=== PATIENT | female | born 1950 | race Caucasian/White ===

== ENCOUNTER 2016-12-01 07:00 | Inpatient (IN) | payer OTHER, BC ==
[2017-02-09] MEDS ORDERED: morphINE PF 5 MG/10 ML INJ IT ONE (06:00)
[2017-02-09] MEDS ORDERED: fentaNYL 100 MCG/2 ML INJ IT ONE (06:00)
[2017-02-09] MEDS ORDERED: VANCOMYCIN HCL/NORMAL SALINE 250 ML IV ONE (06:00)
[2017-02-09] MEDS ORDERED: LR 1,000 ML IV ONE (06:37)
[2017-02-09] MEDS ORDERED: CITRATE DEXTROSE SOLN 500 ML BAG ONE ×2 (06:38→06:58)
[2017-02-09] MEDS ORDERED: THROMBIN (RECOMBINANT) 20,000 UNIT VIAL TP ONE ×2 (06:41→12:20)
[2017-02-09] MEDS ORDERED: BUPIVACAINE 0.25% 30 ML SDV ONE (06:42)
[2017-02-09] MEDS ORDERED: BUPIVACAINE/EPI 0.25% 30 ML SDV ONE ×2 (06:42→08:39)
[2017-02-09] MEDS ORDERED: BACITRACIN 50,000 UNITS/10 ML SYR IRR ONE ×4 (06:42→13:27)
[2017-02-09] MEDS ORDERED: fentaNYL 100 MCG/2 ML INJ ONE ×2 (06:54→09:39)
[2017-02-09] MEDS ORDERED: REMIFENTANIL HCL 1 MG VIAL ONE ×3 (06:54)
[2017-02-09] MEDS ORDERED: PROPOFOL/EMULSION 500 MG/50 ML BOTTLE IV ONE ×3 (06:55→13:05)
[2017-02-09] MEDS ORDERED: PROPOFOL 200 MG/20 ML VIAL ONE (06:58)
[2017-02-09] MEDS ORDERED: AMINOCAPROIC ACID 5 GM/20 ML VIAL ONE ×2 (07:02→14:12)
[2017-02-09] MEDS ORDERED: MIDAZOLAM 2 MG/2 ML VIAL ONE (07:15)
[2017-02-09] MEDS ORDERED: PHENYLEPHRINE HCL 100 MCG/ML SYR ONE (08:25)
[2017-02-09] MEDS ORDERED: ROCURONIUM 50 MG/5 ML VIAL ONE (08:41)
[2017-02-09] MEDS ORDERED: PHENYLEPHRINE 10 MG/ML SDV ONE (08:41)
[2017-02-09] MEDS ORDERED: DEXAMETHASONE 4 MG/ML VIAL ONE (09:11)
[2017-02-09] MEDS ORDERED: HYDROmorphONE/DILAUDID 2 MG/ML INJ ONE (09:22)
[2017-02-09] MEDS ORDERED: morphINE PF 5 MG/10 ML INJ ONE (09:39)
[2017-02-09 10:33] LABS: % IMMATURE GRANULYOCYTES 0.8 % (0.0-1.1); ABSOLUTE IMMATURE GRANULOCYTES 0.05 10^3/uL (0.00-0.10); ADD DIFF? NO; ADD MORPH? NO; ADD SCAN? NO; ATYPICAL LYMPHOCYTE FLAG 10 (0-99); FRAGMENT RBC FLAG 0 (0-99); HEMATOCRIT 31.7 % (38.0-47.0); HEMOGLOBIN 10.7 g/dL (12.6-16.3); LEFT SHIFT FLG 0 (0-99); LIPEMIA HEMOLYSIS FLAG 90 (0-99); MEAN CELL HEMOGLOBIN 29.7 pg (27.9-34.1); MEAN CELL HEMOGLOBIN CONCENTR. 33.8 g/dL (32.4-36.7); MEAN CELL VOLUME 88.1 fL (81.5-99.8); MEAN PLATELET VOLUME 9.8 fL (8.7-11.7); PLATELET CLUMPS FLAG 0 (0-99); PLATELET COUNT 158 10^3/uL (150-400); RED CELL DISTRIBUTION WIDTH 12.5 % (11.5-15.2)
[2017-02-09 10:52] LABS: INR 1.14 (0.83-1.16); PROTIME(PATIENT) 14.5 SEC (12.0-15.0)
[2017-02-09] MEDS ORDERED: CALCIUM CHLORIDE 1 GM/10 ML INJ ONE (10:52)
[2017-02-09 10:53] LABS: APTT 29.9 SEC (23.0-38.0)
[2017-02-09] MEDS ORDERED: POTASSIUM Cl (KCl) 100 ML IV ONE (11:00)
[2017-02-09 13:25] LABS: % IMMATURE GRANULYOCYTES 0.8 % (0.0-1.1); ABSOLUTE IMMATURE GRANULOCYTES 0.11 10^3/uL (0.00-0.10); ADD DIFF? NO; ADD MORPH? NO; ADD SCAN? NO; ATYPICAL LYMPHOCYTE FLAG 0 (0-99); FRAGMENT RBC FLAG 0 (0-99); HEMATOCRIT 29.7 % (38.0-47.0); HEMOGLOBIN 10.2 g/dL (12.6-16.3); LEFT SHIFT FLG 0 (0-99); LIPEMIA HEMOLYSIS FLAG 90 (0-99); MEAN CELL HEMOGLOBIN 30.5 pg (27.9-34.1); MEAN CELL HEMOGLOBIN CONCENTR. 34.3 g/dL (32.4-36.7); MEAN CELL VOLUME 88.9 fL (81.5-99.8); MEAN PLATELET VOLUME 9.9 fL (8.7-11.7); PLATELET CLUMPS FLAG 0 (0-99); PLATELET COUNT 131 10^3/uL (150-400); RED BLOOD CELL COUNT 3.34 10^6/uL (4.18-5.33)
[2017-02-09] MEDS ORDERED: ALBUMIN 5% 250 ML BOTTLE IV ONE ×2 (13:32→13:34)
[2017-02-09 13:34] LABS: APTT 24.9 SEC (23.0-38.0); INR 1.1 (0.83-1.16); PROTIME(PATIENT) 14.1 SEC (12.0-15.0)
[2017-02-09] MEDS ORDERED: SUGAMMADEX SODIUM 200 MG/2 ML VIAL IVP ONE (15:08)
[2017-02-09] MEDS ORDERED: ONDANSETRON 4 MG/2 ML VIAL ONE (15:12)
[2017-02-09] MEDS ORDERED: TEMAZEPAM 15 MG CAP PO PRN (15:33)
[2017-02-09] MEDS ORDERED: FLUTICASONE NASAL 120 SPRAYS/16 GM MDI EACHNARE PRN (15:33)
[2017-02-09] MEDS ORDERED: ALPRAZolam 1 MG TAB PO PRN (15:33)
[2017-02-09] MEDS ORDERED: DIAZEPAM 10 MG/2 ML SYR IVP PRN (15:43)
[2017-02-09] MEDS ORDERED: LACTULOSE 20 GM/30 ML UDCUP PO PRN (15:43)
[2017-02-09] MEDS ORDERED: NALOXONE HCL 0.4 MG/ML INJ IVP PRN (15:43)
[2017-02-09] MEDS ORDERED: ONDANSETRON DISINTEGRATING 4 MG TAB PO PRN (15:43)
[2017-02-09] MEDS ORDERED: MAGNESIUM HYDROXIDE 30 ML UDCUP PO PRN (15:43)
[2017-02-09] MEDS ORDERED: ONDANSETRON 4 MG/2 ML VIAL IVP PRN (15:43)
[2017-02-09] MEDS ORDERED: ACETAMINOPHEN 325 MG TAB PO PRN (15:43)
[2017-02-09] MEDS ORDERED: BISACODYL 10 MG SUPP PR PRN (15:43)
--- NOTE | 2017-02-09 15:50 | POSTOPPROG ---
Post Op Note Date of Operation: 02/09/17 Surgeon: Hermelindo Alaniz Candy Counter Clerk: Rian Anesthesiologist: Socorro Anesthesia: GET(General Endotracheal) Pre-op Diagnosis: lumbar DJD/kyphosis Post-op Diagnosis: same Indication: back pain, kyphosis Procedure: L2-S2 fusion, L5/S1 TLIF, L5 PSO Findings: stenosis Inf/Abcess present in the surg proc area at time of surgery?: No EBL: Greater than 1000 (3000 ml EBL) Complications: None Drains: Varinder Garcia
--- NOTE | 2017-02-09 15:51 | SOAPPROG ---
SOAP Progress Note Assessment/Plan: Assessment: 67 yo F L2-S2 fusion Plan: stable to ICU follow hg/hct please call with neuro changes 02/09/17 15:50 Subjective: + back pain Objective: Laboratory Results 02/09/17 13:15 PT 14.1 SEC (12.0-15.0) 02/09/17 13:15 INR 1.10 (0.83-1.16) 02/09/17 13:15 somnolent PERRL, EOMI SHELLIE x 4 + light touch ICD10 Worksheet Patient Problems: Problems Problem Status Onset Fusion of lumbar spine Acute - ICD10 Problem Qualifiers (1) Fusion of lumbar spine
[2017-02-09] MEDS ORDERED: VANCOMYCIN 1.5 GM in D5W 250 ML IV SCH (16:00)
[2017-02-09] MEDS: NS W/ 20 KCl/L 1,000 ML IV SCH (16:12)
[2017-02-09] MEDS: morphINE PCA 30 MG/30 ML PCA IV PRN (16:14)
[2017-02-09 16:41] LABS: % IMMATURE GRANULYOCYTES 0.9 % (0.0-1.1); ABSOLUTE IMMATURE GRANULOCYTES 0.08 10^3/uL (0.00-0.10); ADD DIFF? NO; ADD MORPH? NO; ADD SCAN? NO; ATYPICAL LYMPHOCYTE FLAG 0 (0-99); FRAGMENT RBC FLAG 0 (0-99); HEMATOCRIT 29.8 % (38.0-47.0); HEMOGLOBIN 10.1 g/dL (12.6-16.3); LEFT SHIFT FLG 10 (0-99); LIPEMIA HEMOLYSIS FLAG 90 (0-99); MEAN CELL HEMOGLOBIN 30.3 pg (27.9-34.1); MEAN CELL HEMOGLOBIN CONCENTR. 33.9 g/dL (32.4-36.7); MEAN CELL VOLUME 89.5 fL (81.5-99.8); MEAN PLATELET VOLUME 10.8 fL (8.7-11.7); PLATELET CLUMPS FLAG 10 (0-99); PLATELET COUNT 75 10^3/uL (150-400); RED BLOOD CELL COUNT 3.33 10^6/uL (4.18-5.33); RED CELL DISTRIBUTION WIDTH 13.6 % (11.5-15.2)
--- NOTE | 2017-02-09 16:43 | GOP ---
[f rep st] OPERATIVE REPORT DATE OF OPERATION: 02/09/2017 SURGEON: Hermelindo Alaniz MD CLARK DRIVER: ANDRE Shepard ANESTHESIA: General endotracheal. PREOPERATIVE DIAGNOSIS: Intractable low back pain and bilateral lower extremity radicular/neurogeni c claudication secondary to severe multilevel degenerative joint disease, grade 2 spondylolisthesis, and progressive kyphosis, status post approximately 12 prior low back surgeries. Failed conservati ve care. 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 POSTOPERATIVE DIAGNOSIS: Intractable low back pain and bilateral lower extremity radicular/neurogen ic claudication secondary to severe multilevel degenerative joint disease, grade 2 spondylolisthesis , and progressive kyphosis, status post approximately 12 prior low back surgeries. Failed conservat autumn care. High risk surgical candidate given age, comorbidities, including history of methicillin-r esistant Staphylococcus aureus infection and required surgical intervention. PROCEDURE PERFORMED: L5 pedicle subtraction osteotomy with bilateral L4-5 and L5-S1 far lateral tra nsfacet transpedicular decompression. L4-5 and L5-S1 posterior/transforaminal lumbar interbody fusi on with structural PEEK interbody spacers, local autograft, and bone morphogenic protein. L2 throug h sacrum and iliac/pelvic instrumentation and fusion with local autograft and bone morphogenic prote in. Reduction of loss of lordosis/kyphotic angulation. Use of intraoperative microscopy, fluorosco py, and computer volumetric stereotactic navigation with intraoperative neurophysiologic testing. I njection of intrathecal narcotic analgesics and subcutaneous and intramuscular local anesthesia for postoperative pain control. FINDINGS: ESTIMATED BLOOD LOSS: 1200 cc. INDICATIONS: The patient is a 67-year-old woman with a very complicated past medical and surgical h istory involving her low back. 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 She has a grade 2 spondyloli sthesis at L4-5 with severe multilevel degenerative disk disease, spinal stenosis, lateral recess im pingement, and progressive kyphosis/loss of normal lordosis. She presents now for a multilevel surg ical decompression, stabilization, and instrumentation, with reduction of the kyphosis with a pedicl e subtraction osteotomy. DESCRIPTION OF PROCEDURE: After informed consent was obtained, the patient was taken to the operati ng room, placed in the prone position on the Varinder table. The lumbosacral area was prepped and dr aped in a sterile fashion. After fluoroscopic localization of the correct levels, the subcutaneous and intramuscular tissues were infiltrated with local anesthesia. A midline linear incision was then created from approximately L2 through S1. This was carried down to the fascial layer, which was then incised with the monopolar electrocautery and carried in a subp eriosteal plane along the spinous processes and lamina bilaterally. The anatomy was very distorted from the prior surgeries, and the spondylolisthesis and rotational component of her deformity as wel l as the kyphosis. This required a very lengthy dissection for exposure. Following this, the appro priate levels were confirmed using biplanar fluoroscopy and bilateral L4-5 and L5-S1 far lateral tra nsfacet, transpedicular decompressions were performed with complete unroofing of the L4, L5, and S1 nerve roots and lateral recesses as well as the central canal. There was an extensive amount of sca r tissue requiring meticulous dissection under high-power microscopy. There was also very severe st enosis, especially out laterally in the neural foramina at L4, where the nerve root was being crushe d. This was meticulously dissected out under high-power microscopy. We were able to identify all t he roots, but there was not much left of the L4 root, especially on the left side, where there was a pparent chronic injury. Following the extensive decompression of the central canal lateral recess a nd neural foramen, the [employer] neuronavigational system was brought in and, in conjunction with the biplanar computer volumetric stereotactic image guidance, also 3D reconstructed images were obtained with the O-arm neuronavigational system, and pedicle screws were placed bilaterally at L2, L3, L4, L5, and S1. Iliac/pelvic fixation was also placed using the O-arm neuronavigational system. All th e screws were stimulated and tested high. Distraction was created across the L5-S1 interspace durin g which time a complete diskectomy was performed with preparation of implants and placement of 2 str uctural PEEK interbody spacers, local autograft, and bone morphogenic protein for an L5-S1 posterior /transforaminal lumbar interbody fusion. Following this, distraction was created across the L4-5 in terspace, and a similar complete diskectomy was performed with preparation of the endplates and plac ement of a single structural PEEK interbody spacer packed with bone morphogenic protein anteriorly i n order to use it as a fulcrum for reduction of the kyphotic deformity. Following the L4-5 and L5-S 1 posterior/transforaminal lumbar interbody procedures, the coarse hernesto bur and the Kerrison jane eurs were utilized to carefully drill down the L5 vertebral body in a v-shaped fashion, and the denise ent was then re-aligned into the more lordotic position. The pedicle screws at L5 were removed, and the pedicles were carefully drilled out, and in eggshell osteotomy format. Rods were placed across L4 to S1, and a slight amount of compression was created across the interspace after completion of the osteotomy and the kyphosis reduced nicely with a 15 mm reduction on the right and a 14 mm reduct ion on the left. The patient had been leaning very slightly to the left in addition to anteriorly. Rods were then placed and secured and following this, biplanar fluoroscopic image guidance was util ized to verify good position of the screws, rods, and interbody spacers. The wound was copiously ir rigated with antibiotic irrigation, and meticulous hemostasis was achieved. An Axle device was plac ed at the L2-3 level in order to hopefully avoid a transitional kyphosis and hardware failure at the top, which could still happen. The remaining lamina and facet joints and transverse processes were then extensively decorticated from L2 through S1, and the residual local autograft along with bone morphogenic protein was placed out laterally for an L2 through S1 posterolateral fusion. Following this 200 mcg of Duramorph along with 50 mcg of fentanyl were injected intrathecally for postoperativ e pain control. The subcutaneous and intramuscular tissues were re-infiltrated with local anesthesi a. A drain was placed, and the wound was closed in a layered fashion using interrupted Vicryl sutur es followed by Steri-Strips on the skin. COMPLICATIONS: None. /[id number]/MODL
[2017-02-09 16:56] LABS: ANION GAP 7 mEq/L (8-16); CALCIUM 8.7 mg/dL (8.5-10.4); CARBON DIOXIDE 25 mEq/l (22-31); CHLORIDE 106 mEq/L (97-110); CREATININE 0.7 mg/dL (0.6-1.0); GLOMERULAR FILTRATION RATE > 60; GLUCOSE 171 mg/dL (70-100); POTASSIUM 3.7 mEq/L (3.5-5.2); SODIUM 138 mEq/L (134-144)
[2017-02-09 17:12] LABS: APTT 30.9 SEC (23.0-38.0)
[2017-02-09] MEDS: DIAZEPAM 5 MG TAB PO PRN (18:04)
[2017-02-09] MEDS: oxyCODONE IR 5 MG TAB PO PRN ×2 (18:22→20:54)
[2017-02-09] MEDS: ALPRAZolam 0.25 MG TAB PO PRN (18:25)
[2017-02-09] MEDS: POLYETHYLENE GLYCOL 3350 17 GM PKT PO SCH ×2 (19:15→22:03)
[2017-02-09] MEDS: FAMOTIDINE 20 MG/NACL 50 ML IV SCH (20:51)
[2017-02-09] MEDS: GABAPENTIN ENACARBIL 300 MG PO SCH (20:52)
[2017-02-09] MEDS: morphINE SR 60 MG TAB PO SCH (20:53)
[2017-02-09] MEDS ORDERED: GABAPENTIN ENACARBIL 300 MG PO SCH (21:00)
[2017-02-09] MEDS: ACET/CAFFEINE/BUTA FIORICET 1 EACH TAB PO PRN (21:08)
[2017-02-09] MEDS: SENNOSIDES/DOCUSATE SODIUM TAB PO SCH (21:55)
[2017-02-10] MEDS: ALPRAZolam 0.25 MG TAB PO PRN ×4 (00:06→23:44)
[2017-02-10] MEDS: oxyCODONE IR 5 MG TAB PO PRN ×4 (00:06→17:58)
[2017-02-10] MEDS: METHOCARBAMOL 750 MG TAB PO PRN ×4 (00:20→21:20)
[2017-02-10 04:04] LABS: % IMMATURE GRANULYOCYTES 0.4 % (0.0-1.1); ABSOLUTE IMMATURE GRANULOCYTES 0.02 10^3/uL (0.00-0.10); ADD DIFF? NO; ADD MORPH? NO; ADD SCAN? NO; ATYPICAL LYMPHOCYTE FLAG 0 (0-99); FRAGMENT RBC FLAG 0 (0-99); HEMATOCRIT 26.3 % (38.0-47.0); HEMOGLOBIN 8.9 g/dL (12.6-16.3); LEFT SHIFT FLG 0 (0-99); LIPEMIA HEMOLYSIS FLAG 90 (0-99); MEAN CELL HEMOGLOBIN 30.2 pg (27.9-34.1); MEAN CELL HEMOGLOBIN CONCENTR. 33.8 g/dL (32.4-36.7); MEAN CELL VOLUME 89.2 fL (81.5-99.8); MEAN PLATELET VOLUME 10.8 fL (8.7-11.7); PLATELET CLUMPS FLAG 10 (0-99); PLATELET COUNT 86 10^3/uL (150-400); RED BLOOD CELL COUNT 2.95 10^6/uL (4.18-5.33); RED CELL DISTRIBUTION WIDTH 14.1 % (11.5-15.2)
[2017-02-10 04:33] LABS: ANION GAP 6 mEq/L (8-16); CARBON DIOXIDE 25 mEq/l (22-31); CHLORIDE 108 mEq/L (97-110); CREATININE 0.7 mg/dL (0.6-1.0); GLOMERULAR FILTRATION RATE > 60; GLUCOSE 108 mg/dL (70-100); POTASSIUM 3.8 mEq/L (3.5-5.2); SODIUM 139 mEq/L (134-144)
[2017-02-10] MEDS ORDERED: NS BOLUS 1000 ML (Wide open) IV ONE (04:40)
[2017-02-10] MEDS: ACET/CAFFEINE/BUTA FIORICET 1 EACH TAB PO PRN (06:23)
[2017-02-10] MEDS: diphenhydrAMINE 25 MG CAP PO PRN ×2 (06:23→21:19)
[2017-02-10] MEDS: DIAZEPAM 5 MG TAB PO PRN ×2 (06:24→17:58)
[2017-02-10] MEDS ORDERED: HYDROCHLOROTHIAZIDE PO SCH (09:00)
[2017-02-10] MEDS ORDERED: VALSARTAN PO SCH (09:00)
[2017-02-10] MEDS ORDERED: [UNRECOGNIZED DRUG - OTHER] PO SCH (09:00)
--- NOTE | 2017-02-10 09:28 | NEUSURGPN ---
Assessment/Plan: Assessment: 67 yo F L2-S2 fusion with L5 PSO, prior lumbar infection with MSSA POD1 Plan: Optimize pain management, work on transitioning to oral meds, will transfer to floor today Post op xrays pending PT/OT Continue Vancomycin until d/c from hospital given lumbar infection history LSO when OOB Continue MANDA drain today Monitor H:H, will check again tomorrow DVT prophx: TEDs, SCDs, Lovenox okay POD#1 please call with neuro changes Subjective: low back pain Objective: NAD A&Ox3 MAEx4 5/5 and equal in BUE and BLE. Incisional dressing with golf ball signed drainage on dressing. Catheter Insertion Date: 02/09/17 - Physician Discussed Patient with : [facility] Physical Exam - Vitals, I&O, Labs I and O 02/09/17 02/10/17 02/11/17 05:59 05:59 05:59 Intake Total 1948 Output Total 1205 460 Balance 743 -460 Weight 53.524 kg Intake: IV Infused (ml) 1947 NS W/ 20 KCl/L 1,000 ml @ 1948 75 mls/hr IV CONT [facility] Rx #:[id number] Output: Urine (ml) 855 350 Catheter 855 350 Wound Drainage (ml) 240 110 #1 Left Varinder Garcia 240 110 Wound Drainage (ml) 110 Left Back Varinder Garcia 110 Vital Signs Temp Pulse Resp BP Pulse Ox 36.9 C 72 16 112/48 L 99 02/09/17 22:00 02/10/17 06:00 02/10/17 06:00 02/10/17 06:00 02/10/17 06:00 Laboratory Results 02/10/17 03:50 02/10/17 03:50 ICD10 Worksheet Patient Problems: Problems Problem Status Onset Fusion of lumbar spine Acute
[2017-02-10] MEDS: VALSARTAN 160 MG TAB PO SCH (09:54)
[2017-02-10] MEDS: PRAVASTATIN SODIUM 40 MG TAB PO SCH (09:54)
[2017-02-10] MEDS: SENNOSIDES/DOCUSATE SODIUM TAB PO SCH ×2 (09:55→21:20)
[2017-02-10] MEDS: DULoxetine 60 MG CAP PO SCH (09:55)
[2017-02-10] MEDS: morphINE SR 60 MG TAB PO SCH ×2 (09:55→21:20)
[2017-02-10] MEDS: HYDROCHLOROTHIAZIDE 12.5 MG CAP PO SCH (09:55)
[2017-02-10] MEDS: GABAPENTIN ENACARBIL 300 MG PO SCH ×2 (09:56→21:21)
[2017-02-10] MEDS: FAMOTIDINE 20 MG/NACL 50 ML IV SCH (09:56)
[2017-02-10] MEDS: VANCOMYCIN HCL/NORMAL SALINE 250 ML IV SCH (09:56)
[2017-02-10] MEDS: ADDERALL 10 MG TAB PO SCH (10:06)
[2017-02-10] MEDS: POLYETHYLENE GLYCOL 3350 17 GM PKT PO SCH ×3 (10:06→21:21)
[2017-02-10] MEDS: morphINE PCA 30 MG/30 ML PCA IV PRN ×3 (10:38→22:23)
[2017-02-10] MEDS: NS W/ 20 KCl/L 1,000 ML IV SCH (19:02)
[2017-02-10] MEDS: morphINE IR 30 MG TAB PO PRN ×2 (19:40→23:41)
[2017-02-10] MEDS: FAMOTIDINE 20 MG TAB PO SCH (21:20)
[2017-02-11] MEDS: HYDROCODONE/APAP 10/325 TAB PO PRN (02:27)
[2017-02-11] MEDS: DIAZEPAM 5 MG TAB PO PRN ×3 (02:28→22:55)
[2017-02-11] MEDS: morphINE IR 30 MG TAB PO PRN ×5 (04:36→21:03)
[2017-02-11 07:32] LABS: HEMATOCRIT 25.6 % (38.0-47.0); HEMOGLOBIN 8.6 g/dL (12.6-16.3)
[2017-02-11] MEDS: FAMOTIDINE 20 MG TAB PO SCH ×2 (08:26→20:58)
[2017-02-11] MEDS: ADDERALL 10 MG TAB PO SCH (08:26)
[2017-02-11] MEDS: GABAPENTIN ENACARBIL 300 MG PO SCH ×2 (08:26→22:33)
[2017-02-11] MEDS: DULoxetine 60 MG CAP PO SCH (08:26)
[2017-02-11] MEDS: POLYETHYLENE GLYCOL 3350 17 GM PKT PO SCH ×3 (08:26→20:58)
[2017-02-11] MEDS: morphINE SR 60 MG TAB PO SCH ×2 (08:26→20:58)
[2017-02-11] MEDS: PRAVASTATIN SODIUM 40 MG TAB PO SCH (08:27)
[2017-02-11] MEDS: SENNOSIDES/DOCUSATE SODIUM TAB PO SCH ×2 (08:27→20:58)
[2017-02-11] MEDS: METHOCARBAMOL 750 MG TAB PO PRN ×2 (08:27→15:46)
[2017-02-11] MEDS: VANCOMYCIN HCL/NORMAL SALINE 250 ML IV SCH (10:21)
[2017-02-11] MEDS: VALSARTAN 160 MG TAB PO SCH (10:25)
[2017-02-11] MEDS: HYDROCHLOROTHIAZIDE 12.5 MG CAP PO SCH (10:25)
[2017-02-11] MEDS: ALPRAZolam 0.25 MG TAB PO PRN ×2 (10:32→21:03)
[2017-02-11] MEDS: NS W/ 20 KCl/L 1,000 ML IV SCH (10:33)
--- NOTE | 2017-02-11 11:45 | NEUSURGPN ---
Date of Surgery: 02/09/17 Post Op Day: 2 Assessment/Plan: Assessment/Plan: Assessment: 67 yo F L2-S2 fusion with L5 PSO, prior lumbar infection with MSSA POD2 Plan: Optimize pain management, work on transitioning to oral meds, Post op xrays pending PT/OT Continue Vancomycin until d/c from hospital given lumbar infection history LSO when OOB Continue MANDA drain Monitor H:H, stable at 8.6/25.6 DVT prophx: TEDs, SCDs, Lovenox okay POD#1 please call with neuro changes d/w Dr. Garcia Subjective: Pt OK, pain well controlled overall, but having some new pain shooting into her Left thigh Objective: NAD, AAOx3 no facial droop EOMI, PEARLA MAEx4 BLE 5/5= except L HF, 4+/5 pain limited. 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
[2017-02-11] MEDS: morphINE PCA 30 MG/30 ML PCA IV PRN (11:58)
[2017-02-11] MEDS: oxyCODONE IR 5 MG TAB PO PRN (18:04)
[2017-02-11] MEDS: diphenhydrAMINE 25 MG CAP PO PRN (21:04)
[2017-02-12] MEDS: morphINE IR 30 MG TAB PO PRN ×5 (02:22→22:59)
[2017-02-12] MEDS: METHOCARBAMOL 750 MG TAB PO PRN ×3 (02:33→22:59)
[2017-02-12] MEDS: HYDROCODONE/APAP 10/325 TAB PO PRN (04:27)
[2017-02-12] MEDS: ALPRAZolam 0.25 MG TAB PO PRN ×3 (04:28→23:01)
[2017-02-12 07:48] VITALS: RESP 16
[2017-02-12] MEDS: morphINE PCA 30 MG/30 ML PCA IV PRN (08:49)
[2017-02-12] MEDS: morphINE SR 60 MG TAB PO SCH ×2 (08:55→20:18)
[2017-02-12] MEDS: DULoxetine 60 MG CAP PO SCH (08:55)
[2017-02-12] MEDS: HYDROCHLOROTHIAZIDE 12.5 MG CAP PO SCH (08:56)
[2017-02-12] MEDS: FAMOTIDINE 20 MG TAB PO SCH ×2 (08:56→20:18)
[2017-02-12] MEDS: VALSARTAN 160 MG TAB PO SCH (08:57)
[2017-02-12] MEDS: SENNOSIDES/DOCUSATE SODIUM TAB PO SCH ×2 (08:57→20:19)
[2017-02-12] MEDS: PRAVASTATIN SODIUM 40 MG TAB PO SCH (08:58)
[2017-02-12] MEDS: ADDERALL 10 MG TAB PO SCH (08:58)
[2017-02-12] MEDS: VANCOMYCIN HCL/NORMAL SALINE 250 ML IV SCH (09:03)
[2017-02-12] MEDS: DIAZEPAM 5 MG TAB PO PRN ×2 (09:03→20:18)
--- NOTE | 2017-02-12 10:19 | NEUSURGPN ---
Date of Surgery: 02/09/17 Post Op Day: 3 Assessment/Plan: Assessment/Plan: Assessment: 67 yo F L2-S2 fusion with L5 PSO, prior lumbar infection with MSSA POD3 Plan: Optimize pain management, work on transitioning to oral meds, Post op xrays with stable hardware PT/OT Continue Vancomycin until d/c from hospital given lumbar infection history LSO when OOB Continue MANDA drain 260mL last 24 Monitor H:H, stable at 8.6/25.6 3 DVT prophx: TEDs, SCDs, Lovenox okay POD#1 please call with neuro changes d/w Dr. Garcia Subjective: pt doing well with pain control, no new complaints. Objective: NAD, AAOx3 no facial droop EOMI, PEARLA MAEx4 BLE 5/5= except L HF, 4+/5 pain limited. 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
[2017-02-12] MEDS: POLYETHYLENE GLYCOL 3350 17 GM PKT PO SCH ×3 (10:20→20:20)
[2017-02-12] MEDS: GABAPENTIN ENACARBIL 300 MG PO SCH ×2 (10:21→20:19)
[2017-02-12] MEDS: NS W/ 20 KCl/L 1,000 ML IV SCH (13:27)
[2017-02-12] MEDS: diphenhydrAMINE 25 MG CAP PO PRN (21:12)
[2017-02-13] MEDS: morphINE IR 30 MG TAB PO PRN ×3 (02:40→11:39)
[2017-02-13] MEDS: METHOCARBAMOL 750 MG TAB PO PRN (05:52)
[2017-02-13] MEDS: ALPRAZolam 0.25 MG TAB PO PRN (06:06)
[2017-02-13 07:41] VITALS: BP 112/69; PULSE 75; TEMP 99; O2SAT 96
[2017-02-13] MEDS: HYDROCODONE/APAP 10/325 TAB PO PRN (08:08)
[2017-02-13] MEDS: morphINE SR 60 MG TAB PO SCH (08:09)
[2017-02-13] MEDS: DIAZEPAM 5 MG TAB PO PRN (08:09)
[2017-02-13] MEDS: VALSARTAN 160 MG TAB PO SCH (08:10)
[2017-02-13] MEDS: HYDROCHLOROTHIAZIDE 12.5 MG CAP PO SCH (08:10)
[2017-02-13] MEDS: ADDERALL 10 MG TAB PO SCH (08:10)
[2017-02-13] MEDS: SENNOSIDES/DOCUSATE SODIUM TAB PO SCH (08:10)
[2017-02-13] MEDS: POLYETHYLENE GLYCOL 3350 17 GM PKT PO SCH (08:11)
[2017-02-13] MEDS: PRAVASTATIN SODIUM 40 MG TAB PO SCH (08:11)
[2017-02-13] MEDS: DULoxetine 60 MG CAP PO SCH (08:11)
[2017-02-13] MEDS: FAMOTIDINE 20 MG TAB PO SCH (08:11)
[2017-02-13] MEDS: GABAPENTIN ENACARBIL 300 MG PO SCH (08:12)
--- NOTE | 2017-02-13 08:53 | NEUSURGPN ---
Assessment/Plan: Assessment: 67 yo F L2-S2 fusion with L5 PSO, prior lumbar infection with MSSA POD4 Plan: Optimize pain management, work on transitioning to oral meds, Post op xrays with stable hardware PT/OT Continue Vancomycin until d/c from hospital given lumbar infection history LSO when OOB DC MANDA today DVT prophx: TEDs, SCDs, Lovenox please call with neuro changes Dispo planning Subjective: low back pain tolerable with medications Objective: NAD A&Ox3 MAEx4 5/5 and equal in BUE and BLE. Incision c/d/i. 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
[2017-02-13] MEDS ORDERED: VANCOMYCIN HCL/NORMAL SALINE 250 ML IV SCH (10:00)
--- NOTE | 2017-02-13 13:23 | PDIAF ---
- Diagnosis Code Status: Full Code - Medication Management Discharge Medications: Medications to Continue on Transfer ALPRAZolam [Xanax 1 MG (*)] 1 mg PO Q6 PRN 01/26/17 [Last Taken 02/09/17] Acet/Caffeine/Buta Fioricet [Fioricet (*)] 1 each PO Q4 PRN MDD MAX 5 01/26/17 [ Last Taken 02/09/17 05:00] DULoxetine [Cymbalta 60 MG (*)] 60 mg PO DAILY 01/26/17 [Last Taken 02/08/17 15: 00] Dextroamphetamine/Amphetamine [Dextroamp-Amphetamin 10 mg Tab] 10 mg PO DAILY [Last Taken 02/08/17 07:00] Fluticasone Nasal [Flonase Nasal [place]] 1 sprays NASAL DAILY PRN 01/26/17 [Last Taken 02/07/17] Gabapentin Enacarbil [Horizant] 300 mg PO BID 01/26/17 [Last Taken 02/08/17 20: 00] Pravastatin Sodium 40 mg PO DAILY 01/26/17 [Last Taken 02/08/17 20:00] Temazepam [Restoril 15 MG (*)] 30 mg PO HSPRN PRN 01/26/17 [Last Taken 02/08/17 20:00] Valsartan/Hydrochlorothiazide [Valsartan-Hctz 320-12.5 mg Tab] 1 each PO DAILY 01/26/17 [Last Taken 02/09/17 05:00] Diazepam [Valium 5 MG (*)] 2.5 - 5 mg PO QID PRN #0 tab 02/13/17 [Last Taken Unknown] HYDROcodone/APAP 10/325 [Veblen 10/325 (*)] 1 - 2 tab PO Q6HRS PRN #0 tab [Last Taken Unknown] Sennosides/Docusate Sodium [Senokot-S] 1 - 2 tab PO BID #0 tab 02/13/17 [Last Taken Unknown] morphINE IR [morphINE IR 30 mg (*)] 30 mg PO Q3 PRN #0 tab 02/13/17 [Last Taken Unknown] morphINE SR [MS Contin/Oramorph 60 mg (*)] 60 mg PO BID #0 tab 02/13/17 [Last Taken Unknown] Discharge Medications: Refer to the Discharge Home Medication list for PRN reason. - Orders Services needed: Registered Nurse, Physical Therapy, Occupational Therapy Diet Recommendation: no restrictions on diet - Follow Up Care Current Providers and Referrals: MELISSA LAROSE [Other]
== END 2017-02-13 12:57 | disposition home health service (06) | DRG 460 ==
LOC: F3N 02-09 05:58 → F2N 02-09 15:59 → F3N 02-10 17:49
PROVIDERS: ADMIT Neurological Surgery; ATTEND Neurological Surgery
PROC: 0QH204Z Insertion of Internal Fixation Device into Right Pelvic Bone, Open Approach (ICD-10-PCS; principal; 2017-02-09 07:15)
PROC: 01NB0ZZ Release Lumbar Nerve, Open Approach (ICD-10-PCS; principal; 2017-02-09 07:15)
PROC: 0SS00ZZ Reposition Lumbar Vertebral Joint, Open Approach (ICD-10-PCS; principal; 2017-02-09 07:15)
PROC: 0QH304Z Insertion of Internal Fixation Device into Left Pelvic Bone, Open Approach (ICD-10-PCS; principal; 2017-02-09 07:15)
PROC: 0SG3071 Fusion of Lumbosacral Joint with Autologous Tissue Substitute, Posterior Approach, Posterior Column, Open Approach (ICD-10-PCS; principal; 2017-02-09 07:15)
PROC: 3E0V0GB Introduction of Recombinant Bone Morphogenetic Protein into Bones, Open Approach (ICD-10-PCS; principal; 2017-02-09 07:15)
PROC: 0ST20ZZ Resection of Lumbar Vertebral Disc, Open Approach (ICD-10-PCS; principal; 2017-02-09 07:15)
PROC: 4A10X4G Monitoring of Central Nervous Electrical Activity, Intraoperative, External Approach (ICD-10-PCS; principal; 2017-02-09 07:15)
PROC: 00NY0ZZ Release Lumbar Spinal Cord, Open Approach (ICD-10-PCS; principal; 2017-02-09 07:15)
PROC: 8E0WXBZ Computer Assisted Procedure of Trunk Region (ICD-10-PCS; principal; 2017-02-09 07:15)
PROC: 0SG30AJ Fusion of Lumbosacral Joint with Interbody Fusion Device, Posterior Approach, Anterior Column, Open Approach (ICD-10-PCS; principal; 2017-02-09 07:15)
PROC: 0SG1071 Fusion of 2 or more Lumbar Vertebral Joints with Autologous Tissue Substitute, Posterior Approach, Posterior Column, Open Approach (ICD-10-PCS; principal; 2017-02-09 07:15)
PROC: 0SG00AJ Fusion of Lumbar Vertebral Joint with Interbody Fusion Device, Posterior Approach, Anterior Column, Open Approach (ICD-10-PCS; principal; 2017-02-09 07:15)
DX: M43.16 Spondylolisthesis, lumbar region (principal); M47.26 Other spondylosis with radiculopathy, lumbar region; M41.86 Other forms of scoliosis, lumbar region; M48.06 Spinal stenosis, lumbar region; Z86.14 Personal history of Methicillin resistant Staphylococcus aureus infection; I10 Essential (primary) hypertension; E78.5 Hyperlipidemia, unspecified; F32.9 Major depressive disorder, single episode, unspecified
CPT/HCPCS: 97116-GP; 97161-GP; 97162-GP; 97165-GO; 97530-GP; 97535-GO; C1713; G8978-GP-CI; G8978-GP-CJ; G8979-GP-CI; G8980-GP-CI; G8987-GO-CL; G8988-GO-CI; G8989-GO-CI; J1100; J1170; J1200; J2250; J2270; J2274; J2370; J2405; J2704; J3010; J3370; J7060; P9012; P9016; P9017; P9041

== ENCOUNTER → 2017-01-25 | Outpatient (CLI) | payer OTHER, BC | LOC: FIMAGING 09:12 | PROVIDERS: ATTEND Physician Assistant Surgical | DX: Z01.818 Encounter for other preprocedural examination (principal); M41.82 Other forms of scoliosis, cervical region; M41.85 Other forms of scoliosis, thoracolumbar region ==

== ENCOUNTER → 2017-06-14 | Outpatient (CLI) | payer OTHER, BC | LOC: FIMAGING 14:32 | PROVIDERS: ATTEND Physician Assistant Surgical | DX: Z09 Encounter for follow-up examination after completed treatment for conditions other than malignant neoplasm (principal); Z98.1 Arthrodesis status ==